=== PATIENT | male | born 1985 | race African-American/Black ===

== ENCOUNTER 2018-09-15 11:03 | Emergency (ER) | payer SELFPAY ==
[2018-09-15 13:17] LABS: Bilirubin Negative (Negative); Blood, Urine Negative (Negative); Clarity CLEAR (Clear); Glucose, Urine (Dipstick) Negative (Negative); Leukocyte Small (Negative); Nitrite Negative (Negative); Protein, Urine (Dipstick) Negative (Neg-Trace); Specific Gravity, Urine 1.021 (1.002-1.036); pH, Urine 7.5 (5.0-9.0)
[2018-09-15 13:19] LABS: Bacteria/HPF None Seen HPF (None Seen); Hyaline Casts/LPF 4-6 HYALINE CAST LPF (0-3 Hyaline); Pathc Cast-AUWi Flag 0.14 (0-2.49); RBC/HPF 0-3 HPF (0-3); Squamous Epithelial 0-3 HPF (0-3)
[2018-09-15] MEDS ORDERED: cefTRIAXone\\ROCEPHIN 250 MG VIAL ONE (13:44)
[2018-09-15] MEDS ORDERED: Lidocaine 1% PF 5 ML VIAL ONE (13:44)
[2018-09-17 19:14] LABS: Chlamydia by PCR Not Detected (NotDetected); GC by PCR Not Detected (NotDetected)
== END 2018-09-15 14:04 | disposition home or self-care (01) ==
LOC: ERS 11:03
DX: A64 Unspecified sexually transmitted disease (principal); N45.1 Epididymitis; Z71.6 Tobacco abuse counseling; F17.210 Nicotine dependence, cigarettes, uncomplicated
CPT/HCPCS: 81003; 81015; 87491; 87591; 96372; 99406; J0696; J2001

== ENCOUNTER 2018-11-14 17:32 | Emergency (ER) | payer SELFPAY | END 2018-11-14 19:20 | disposition home or self-care (01) | LOC: ERS 17:32 | DX: Z00.00 Encounter for general adult medical examination without abnormal findings (principal); F17.210 Nicotine dependence, cigarettes, uncomplicated | CPT/HCPCS: 99281 ==